=== PATIENT | female | born 1970 | race African-American/Black ===

== ENCOUNTER → 2017-06-26 | Day surgery (SDC) | payer MEDICAID ==
[~2017-06-26] VITALS: Ht 165.1 cm; Wt 74.8 kg
[2017-06-26 12:50] LABS: GLUCOSE CSF 51 mg/dL (41-75)
[2017-06-29 15:12] LABS: MYELIN BASIC PROTEIN CSF 4.2 ng/mL (0.0-1.2)
== END | disposition home or self-care (01) ==
LOC: RADANGIO 08:54
PROVIDERS: ATTEND Psychiatry & Neurology Neurology
DX: R53.1 Weakness (principal); R20.2 Paresthesia of skin; Z88.0 Allergy status to penicillin
CPT/HCPCS: 62270; 77003; 82040; 82042; 82784; 82945; 83873; 83916; 84157; 89050